=== PATIENT | male | born 1970 | race Two or more races ===

== ENCOUNTER 2025-05-21 10:53 | Emergency (ER) | payer MEDICAID, SELFPAY ==
[2025-05-21 10:54] VITALS: BMI 26.6
[2025-05-21 11:00] VITALS: BP 168/89; PULSE 69; RESP 18; TEMP 37.1; O2SAT 98
--- NOTE | 2025-05-21 11:02 | XR_ITS ---
Examination: Fingers, left hand fifth digit 3 views Technique: AP, oblique, lateral views left hand fifth digit. Exam date and time: May 21, 2025, 1116 hrs. Indications: Injury to the hand today with fifth digit pain Findings: Soft tissue swelling about the fifth digit Subtle deformity on the lateral view involving the base of the distal phalanx, the appearance should be clinically correlated Impression: Suspicious for nondisplaced fracture involving the base of the distal phalanx fifth digit, recommend follow-up as clinically warranted
--- NOTE | 2025-05-21 11:29 | EDNOTE_ITS ---
Upper Extremity Injury RME/HPI General Chief Complaint: Hand/Wrist Problems Stated Complaint: CRUSHED LEFT 5TH FINGER YESTERDAY Time Seen by Provider: 05/21/25 11:02 Arrival date/time: 05/21/25 10:53 54-year-old male presents emergency department today sedated, off of the ladder yesterday and injured his left hand fifth digit patient reports he jammed his finger. Limitations: no limitations Related Data Previous Rx's ?Medication ?Instructions ?Recorded ibuprofen 600 mg tablet 1 tab PO Q8HR PRN pain #30 t abs 07/04/17 hydrocodone 5 mg-acetaminophen 325 1 tab PO BID PRN pa in #6 tabs 07/23/23 mg tablet ibuprofen 800 mg tablet 800 mg PO TID PRN pain #30 t abs 07/23/23 hydrocodone 5 mg-acetaminophen 325 1 tab PO BID PRN pa in #8 tabs 05/21/25 mg tablet ibuprofen 800 mg tablet 800 mg PO TID PRN pain #30 t abs 05/21/25 Allergies Allergy/AdvReac Type Severity Reaction Status Date / Time No Known Allergies Allergy Verified 05/21/25 10:56 Review of Systems Review of Systems Systems Reviewed: All systems reviewed, normal except as documented Constitutional Constitutional: Reports system reviewed and no additional complaints, except as documented, Denies fever(s) and Denies headache(s) Eyes Eyes: Reports system reviewed and no additional complaints, except as documented and Denies blurry vision ENT Ears, Nose, Mouth, and Throat: Reports system reviewed and no additional complaints, except as documented, Denies headache(s), Denies nasal congestion and Denies nasal discharge Cardiovascular Cardiovascular: Reports system reviewed and no additional complaints, except as documented, Denies chest pain and Denies dyspnea Respiratory Respiratory: Reports system reviewed and no additional complaints, except as documented, Denies chest congestion, Denies cough and Denies dyspnea Gastrointestinal Gastrointestinal: Reports system reviewed and no additional complaints, except as documented and Denies abdominal pain Musculoskeletal Musculoskeletal: Reports system reviewed and no additional complaints, except as documented, Reports arthralgias, Denies deformity, Denies numbness, Reports stiffness and Denies tingling Integumentary/Breasts Skin/Breast: Reports system reviewed and no additional complaints, except as documented and Denies rash Neurologic Neurologic: Reports system reviewed and no additional complaints, except as documented, Reports as per HPI, Denies headache(s), Denies numbness and Denies tingling Past Medical History Past Medical History NEUROLOGIC: Negative Neurological Disorders CARDIAC: Negative Cardiac Disorders GASTROINTESTINAL: Negative Gastrointestinal Disorders GENITOURINARY: Negative Genitourinary Disorders MUSCULOSKELETAL: Negative Musculoskeletal Disorders ENT: Positive Cataracts Social History SMOKING STATUS: Never smoker ED Exam General Limitations: Present no limitations General appearance: Present alert and in no apparent distress Head Head exam: Present atraumatic Eye Eye exam: Present normal appearance, PERRL and EOMI ENT ENT exam: Present normal exam, normal oropharynx and mucous membranes moist Neck Neck exam: Present normal inspection, full ROM and trachea midline Chest Chest inspection: Present normal inspection and symmetric chest wall rise Respiratory Respiratory exam: Present normal lung sounds bilaterally Cardiovascular Cardiovascular exam: Present regular rate, normal rhythm and normal heart sounds Abdominal Exam Abdominal exam: Present soft and normal bowel sounds Extremities Exam Extremities exam: Present full ROM, tenderness, normal capillary refill and joint swelling Back Exam Back exam: Present normal inspection and full ROM Neurological Exam Neurological exam: Present alert, oriented X3 and CN II-XII intact Psychiatric Psychiatric exam: Present normal affect and normal mood Skin Skin exam: Present warm, dry, intact and normal color Course Quality Measures none Orders Category Date Time Status Splint / Immobilizer STAT Care 05/21/25 11:29 Active XR finger LT min 2V Stat Exams 05/21/25 11:02 Completed Vital Signs Vital signs: Vital Signs Temperature 98.7 F 05/21/25 11:00 Pulse Rate 69 05/21/25 11:00 Respiratory Rate 18 05/21/25 11:00 Blood Pressure 168/89 H 05/21/25 11:00 Pulse Oximetry (%) 98 05/21/25 11:00 Oxygen Delivery Method Room Air 05/21/25 11:00 O2 saturation 98% on room air with normal limits PROCEDURES: Splint Fabrication: Pre-Fabricated Type: Finger Protector Reason for Splint: Optimal Positioning and Pain Management Site condition: Bruised Circulation Distal to Splint: Yes Movement Distal to Splint: Yes Senation Distal to Splint: Yes Tolerance: Tolerates Well Extremity Injury MDM Narrative MDM Narrative:: 54-year-old male presents emergency department today sedated, off of the ladder yesterday and injured his left hand fifth digit patient reports he jammed his finger. On exam patient has mild bruising and swelling to left hand fifth digit X-ray obtained x-ray consistent with fracture left hand fifth digit which is consistent with patient presentation Patient placed in a finger splint Patient discharged home with pain medication Patient discharged home in no distress to follow-up with primary care doctor in the next 24 to 48 hours and for any worsening symptoms to return to the ER immediately Patient data External records reviewed:: [facility] previous records Clinical information provided by:: patient Social determinants that could affect healthcare access:: none Patient has the following chronic illnesses:: None How is presenting disease/condition affected by chronic disease/condition?: no chronic disease Evaluation data The following diagnostics were reviewed and interpreted by me:: radiology exam(s) Lab and/or radiology exams considered but not ordered:: Radiology obtain Interpretation Summary: Reviewed by me Medications / Prescriptions Medications or Prescriptions considered but not ordered:: Given Medication administrations:: Given Consultations Consultation(s) initiated? (list below): No Diagnosis Upper Extremity Injury Differential Diagnosis: finger sprain, dislocation of finger and fracture of hand Most likely diagnosis given after review of the tests above:: Finger fracture Admission Indicated Admission indicated?: not indicated Admission Request Was there a request for admission?: No Disposition Plan Disposition Plan: Discharge Discharge Attestation Discharge Attestation: The patient and all family members were given an opportunity to ask questions and understood the discharge instructions. Discharge instructions specifically effects, indications for sooner follow up or return to the emergency department, and the expected course of current diagnosis. Patient condition: Stable Discharge Plan Plan Patient Disposition: HOME (Self Care) Discharge Disposition comment: Stable Prescriptions/Referrals Prescriptions/Med Rec: New ibuprofen 800 mg tablet 800 mg PO TID PRN (Reason: pain) Qty: 30 0RF hydrocodone-acetaminophen 5-325 mg tablet 1 tab PO BID MDD 10 PRN (Reason: pain) Qty: 8 0RF No Action ibuprofen 600 MG tablet 1 tab PO Q8HR PRN (Reason: pain) Qty: 30 0RF ibuprofen 800 mg tablet 800 mg PO TID PRN (Reason: pain) Qty: 30 0RF hydrocodone-acetaminophen 5-325 mg tablet 1 tab PO BID MDD 10 PRN (Reason: pain) Qty: 6 0RF Problem List Clinical Impression: Fracture of finger of left hand Patient/Caregiver Discharge Instructions Education Materials: [facility] Additional Instructions: Please follow up with your primary care doctor in the next 24-48hrs for any worsening symptoms return here immediately Print Language: [place] Stand Alone Forms: [facility] Award Info., Patient Portal Info Letter PA/CLIENT SERVICES ACCOUNT MANAGER Supervising Physician PA/CLIENT SERVICES ACCOUNT MANAGER Supervising Physician: Dr. baker
== END 2025-05-21 11:54 | disposition home or self-care (01) ==
LOC: SERX 12:21
PROVIDERS: Emergency Provider Emergency Medicine
DX: S62.667A Nondisplaced fracture of distal phalanx of left little finger, initial encounter for closed fracture (principal); W23.1XXA Caught, crushed, jammed, or pinched between stationary objects, initial encounter
CPT/HCPCS: 73140; 99283